=== PATIENT | male | born 1965 | race Caucasian/White ===

== ENCOUNTER → 2024-11-21 15:10 | Outpatient (BNVA) | payer BC, SELFPAY | PROVIDERS: PCP Family Medicine; Visit Provider Internal Medicine Cardiovascular Disease | DX: R07.9 Chest pain, unspecified (principal) | CPT/HCPCS: 93005 ==

== ENCOUNTER 2025-01-09 07:43 | Outpatient (CLI) | payer BC, SELFPAY ==
[2025-01-09 08:04] VITALS: BMI 28.1
--- NOTE | 2025-01-09 08:12 | ECG_ITS ---
[facility] Test Date: 2025-01-09 Pat Name: Jam Alcazar Department: Room: Gender: Male Smash Hand: : 1965 Requested By: Radha Villa Order Number: [id number] Kalen MD: Tanner Coyne M.D. Interpretive Statements Lung unchanged pre/post procedure; Intraprocedure shortess of breath; Symptoms resoled by discharge PROCEDURE: At the baseline, the EKG revealed normal sinus rhythm with diffuse nonspecific ST changes. The baseline heart was 60 bpm with a blood pressue of 104/61 mm of Hg Lexiscan was infused over a period of 20 seconds. A total of 0.4 milligrams of Lexiscan was infused. The stress phase was continued for a total of 5 minutes. Heart rate at the end of the stress phase was 77 bpm with a blood pressure 122/71 mm of Hg. The EKG at the peak infusion revealed no significant changes. Sestamibi was injected 20 seconds after the Lexiscan infusion. Heart rate at the end of the recovery phase was 79 bpm with a blood pressure of 108/61 mm of Hg. CONCLUSION: 1. No significant EKG changes with the LexiScan infusion 2. No LexiScan induced chest pain or cardiac arrhythmia 3. Normal blood pressure and heart rate response 4. Sestamibi/sestamibi perfusion scan pending; see separate report. Electronically Signed On 01-12-2025 21:46:35 CDT by Tanner Coyne M.D. [email or web address]
--- NOTE | 2025-01-09 08:12 | NMCV_ITS ---
NM rodney perf SPECT r/s* [id number] Jam Alcazar Age: 59 Gender: M : 1965 Exam Date: 01/09/2025 08:44 Ordering Phys: Radha Villa MD ([email or web address]) Technologist: SINGH Sheriff Exam Location: [facility] Indications: cp STRESS TEST Please see separate stress test report in [facility] for full findings IMAGE PROTOCOL Rest/Stress 1 Lexiscan Day Radiopharmaceutical Dose (mCi) Administration Site Administered by Rest: Tc-99m 10.5 IV Pamela Guan PATIENT SAFETY OFFICER Sestamibi Stress:Tc-99m 32.9 IV Pamela Wellsgle, PATIENT SAFETY OFFICER Sestamibi Rest: 09-Jan-2025 60 Discovery 630 Stress: 09-Jan-2025 30 Discovery 630 0.4mg Lexiscan. Images obtained in supine and prone position. SPECT RESULTS Technical Quality: Good Raw Data Analysis: Normal Image Corrections: No attenuation or motion correction applied Summed Stress Score: 3 Summed Rest Score: 0 Summed Difference Score: 3 PERFUSION FINDINGS Small area of minimal to moderately decreased tracer uptake involving the mid and apical inferior wall region. Significant reversibility was noted at rest. FUNCTIONAL RESULTS (calculated via Gated SPECT) Stress Image LV EF (%): 69 Stress EDV (mL):110 TID: 0.83 Stress ESV (mL):34 FUNCTIONAL FINDINGS: Segmental wall motion analysis revealing no gross wall motion abnormalities IMPRESSIONS 1. Myocardial perfusion imaging revealing small area of minimal to moderately decreased tracer uptake involving the mid and apical inferior wall regions with significant reversible defect, suggesting ischemia in the distribution of the right coronary artery. 2. Normal LV ejection fraction of 69%. 3. LV wall motion analysis revealing no gross wall motion abnormalities. 4. Normal LV volume. No similar previous studies are available for comparison Dr Tanner Coyne MD [facility] (Electronically Signed) Final Date: 09 January 2025 16:39 S
[2025-01-09 09:45] VITALS: BP 108/61; PULSE 79
--- NOTE | 2025-01-09 14:15 | USCV_ITS ---
Jam Alcazar Age: 59 Gender: M : 1965 Exam Date: 01/09/2025 13:22 Ordering Phys: Radha Villa MD ([email or web address]) Technologist: [place] [facility] [place]: cp sob BP: / HR: 75 Rhythm: Sinus Technical Quality: Adequate MEASUREMENTS (Male / Female) Normal Values 2D ECHO LV Diastolic Diameter PLAX 5.1 cm 4.2 - 5.9 / 3.9 - 5.3 cm IVS Diastolic Thickness 1.3 cm 0.6 - 1.0 / 0.6 - 0.9 cm IVS Systolic Thickness 1.5 cm LVPW Diastolic Thickness 1.5 cm 0.6 - 1.0 / 0.6 - 0.9 cm LVPW Systolic Thickness 2.0 cm LVOT Diameter 2.1 cm LV Ejection Fraction 2D Teich 67.9 % LV Ejection Fraction MOD 4C 64.8 % LV Ejection Fraction MOD 2C 66.3 % LV Ejection Fraction 2C AL 66.7 % LA Diameter 3.1 cm LA Sys Volume AL 40.4 cm cubed LA Sys Volume Index AL 17.3 cm cubed/m squared Aorta at Sinotubular Diameter 2.4 cm IVC Diameter 1.5 cm M-MODE LA Ao Ratio MM 1.1 MV E Point Septal Separation 1.5 cm AV Cusp Separation MM 1.8 cm DOPPLER AV Peak Velocity 153.0 cm/s LVOT Peak Velocity 101.0 cm/s AV Area Cont Eq vti 2.9 cm squared AV Area Cont Eq pk 2.3 cm squared MV Peak Velocity 103.0 cm/s MV Area PHT 2.6 cm squared Mitral E to A Ratio 0.8 TR Peak Velocity 189.0 cm/s TR Peak Gradient 14.3 mmHg TV Peak E Velocity 84.0 cm/s PV Peak Velocity 130.0 cm/s FINDINGS Left Ventricle Normal left ventricular size, systolic function and wall thickness, with no regional wall motion abnormalities. Left ventricular ejection fraction is estimated at 60 %. Grade I/IV diastolic dysfunction (abnormal relaxation filling pattern), normal to mildly elevated filling pressures. Right Ventricle The right ventricle is normal in size and function. Right Atrium The right atrium is normal in size. Left Atrium The left atrium is normal in size. Mitral Valve Structurally normal mitral valve without significant stenosis or prolapse. There is no mitral regurgitation. Aortic Valve Structurally normal aortic valve without significant sclerosis or stenosis. There is no aortic regurgitation. Tricuspid Valve Structurally normal tricuspid valve without significant stenosis or regurgitation. Pulmonary artery systolic pressure is normal. Pulmonic Valve Structurally normal pulmonic valve without significant stenosis. There is no pulmonic regurgitation. Pericardium Normal pericardium without effusion. Aorta Normal ascending aorta dimension. IVC The inferior vena cava appears normal. CONCLUSIONS Normal left ventricular size, systolic function and wall thickness, with no regional wall motion abnormalities. Left ventricular ejection fraction is estimated at 60 %. Grade I/IV diastolic dysfunction (abnormal relaxation filling pattern), normal to mildly elevated filling pressures. No significant valve abnormalities. There is no pericardial effusion. Right atrial pressure is around 5 mm of mercury. Radha Villa MD (Electronically Signed) Final Date: 17 January 2025 19:02 S
== END 2025-01-09 07:44 | disposition home or self-care (01) ==
LOC: CDL 07:48
PROVIDERS: PCP Family Medicine; Visit Provider Internal Medicine Cardiovascular Disease
DX: R06.02 Shortness of breath (principal); R07.9 Chest pain, unspecified; R93.1 Abnormal findings on diagnostic imaging of heart and coronary circulation
CPT/HCPCS: 36415; 78452; 93017; 93306; 96374; A9500; J2785